=== PATIENT | female | born 1960 | race Hispanic/Latino ===

== ENCOUNTER → 2018-03-21 | Outpatient (CLI) | payer BC ==
[~2018-03-21] MED LIST: GADOBENATE DIMEGLUMINE 1 ML IV ONE
--- NOTE | 2018-03-21 17:33 | Diagnostic Imaging Report ---
Exams: Brain MRI and IAC MRI without with IV contrast History: Vertigo, hearing loss Comparison studies: None Technique: Brain: Precontrast sagittal and axial T2 FS, axial T1 FLAIR, axial DWI and axial T2*GRE. Post contrast axial T2 FLAIR and axial T1 FS. IACs: Precontrast axial T1 FLAIR and axial 3-D T2 with coronal and sagittal reformats. Postcontrast axial and coronal T1 FS. Intravenous contrast: 20 cc of Gadavist. Findings: Brain MRI: Scalp: No abnormal signal. No masses. Bone marrow: Normal in signal intensity. Brain sulci: Appropriate for age. Ventricles: Normal in size . No hydrocephalus. Parenchyma: No mass, hemorrhage or acute ischemia. A few scattered T2 FLAIR hyperintense foci in the supratentorial white matter are nonspecific but most compatible with chronic microvascular ischemic changes. No enhancing abnormalities on the axial T1 sequence through the whole brain or within the included brain on the axial and coronal postcontrast T1 sequences through the IACs. Suprasellar region: No abnormalities. Craniocervical junction: Patent foramen magnum. No Chiari one malformation. Vessels: Normal flow-voids in the arteries and sinuses. Incidental findings: Nonspecific inflammatory thickening in the left sphenoid sinus. IAC MRI: Cerebellopontine angle cisterns: No mass. IACs: Normal nerves VII and VIII. Labyrinths: Grossly normal formation. No abnormal signal intensity or enhancement. Mastoids: No signal abnormalities. No enhancing abnormalities. IMPRESSION: Brain MRI: 1. Minimal supratentorial chronic microvascular ischemic changes. 2. No other intracranial abnormalities. IAC MRI: No abnormalities. Signed by: Dr. Jose Lam M.D. on 03/21/2018 5:30 PM
== END ==
LOC: MRI 15:05
PROVIDERS: ATTEND Psychiatry & Neurology Neurology
DX: H81.399 Other peripheral vertigo, unspecified ear (principal); H81.09 Meniere's disease, unspecified ear; H91.8X9 Other specified hearing loss, unspecified ear
CPT/HCPCS: 70553